=== PATIENT | female | born 1980 | race Caucasian/White ===

== ENCOUNTER 2019-04-11 11:46 | Emergency (ER) | payer OTHER ==
--- NOTE | 2019-04-11 12:40 | RAD ---
EXAM: 4 views of the left knee HISTORY: Knee pain after feeling something pop COMPARISON: None FINDINGS: No knee effusion is seen. There is no evidence of acute fracture or dislocation. No signifi cant degenerative changes are seen. No soft tissue swelling is present. IMPRESSION: No evidence of acute osseous abnormality.
[2019-04-11] MEDS ORDERED: Ketorolac Tromethamine 30 MG/ML VIAL ONE (12:41)
== END 2019-04-11 13:00 | disposition home or self-care (01) ==
LOC: SCSER 11:46
DX: S83.92XA Sprain of unspecified site of left knee, initial encounter (principal); K21.9 Gastro-esophageal reflux disease without esophagitis; F41.9 Anxiety disorder, unspecified; F32.9 Major depressive disorder, single episode, unspecified; F17.210 Nicotine dependence, cigarettes, uncomplicated; I10 Essential (primary) hypertension; Z79.899 Other long term (current) drug therapy; X50.1XXA Overexertion from prolonged static or awkward postures, initial encounter
CPT/HCPCS: 96372; J1885

== ENCOUNTER 2019-04-23 07:59 | Outpatient (CLI) | payer OTHER ==
--- NOTE | 2019-04-23 10:58 | MRI ---
LEFT KNEE MRI WITHOUT IV CONTRAST: Date: 04/23/19 HISTORY: Positive Chirag sign left knee. Injury left knee with pain. Meniscal tear left knee. Medial joint pa in tenderness. Left knee joint effusion. FINDINGS: Multiplanar, multisequence MRI examination of the left knee is performed. There is evidence for some joint effusion. There is some tricompartment cartilage loss, including the femoropatellar and medial compartments. There is an irregular posterior root tear of the medial meniscus. The lateral meniscus demonstrates some intrasubstance degenerative signal, but no evidence for an acute free edge tear. An terior and posterior cruciate ligaments, collateral ligament complexes, and quadriceps and patellar t endons and extensor mechanism are unremarkable. IMPRESSION: Irregular posterior root tear of the medial meniscus. Joint effusion. Cartilage loss including femoro patellar and medial compartments. No evidence for other significant acute internal derangement. POS: OFF
== END 2019-04-23 08:00 | disposition home or self-care (01) ==
LOC: MRI 07:59
PROVIDERS: ATTEND Pediatrics Sports Medicine
DX: S83.242A Other tear of medial meniscus, current injury, left knee, initial encounter (principal); M25.562 Pain in left knee; M25.462 Effusion, left knee; M94.8X6 Other specified disorders of cartilage, lower leg

== ENCOUNTER 2019-04-28 13:44 | Outpatient (CLI) | payer OTHER ==
[2019-04-28 14:42] LABS: #Basophils 0.1 thou/uL (0.0-0.2); #Eosinphils 0.4 thou/uL (0.0-0.7); #Lymphocytes 3.3 thou/uL (1.20-3.40); #Monocytes 0.7 thou/uL (0.11-0.59); #Neutrophils 6.7 thou/uL (1.40-6.50); %Basophils 0.7 % (0.0-1.0); %Eosinophils 3.4 % (0.0-10.0); %Lymphocytes 29.6 % (21.0-51.0); %Monocytes 5.9 % (0.0-10.0); %Neutrophils 60.4 % (42.0-75.0); Hemoglobin 13.4 g/dL (12.0-16.0); Mean Corpuscular HGB CONC 34.8 g/dL (32.0-36.0); Mean Corpuscular Hemoglobin 32.7 pg (27.0-31.0); Mean Corpuscular Volume 93.8 fL (78.0-98.0); Platelet Count 332 thou/uL (130-400); RBC Distribution Width 11.9 % (11.5-14.5); Red Blood Cell (RBC) Count 4.11 mill/uL (4.20-5.40); White Blood Cell (WBC) Count 11.1 thou/uL (4.8-10.8)
[2019-04-28 15:07] LABS: Anion Gap 14 mmol/L (10-20); BUN (Urea Nitrogen) 13 mg/dL (7.0-18.7); Calc. Creatinine Clearance 0 mL/min (70-130); Calcium 9.4 mg/dL (7.8-10.44); Carbon Dioxide 23 mmol/L (22-29); Chloride 102 mmol/L (98-107); Estimated GFR-MDRD 69; Glucose 102 mg/dL (70-105); Potassium 3.7 mmol/L (3.5-5.1); Sodium 135 mmol/L (136-145)
[2019-04-28 15:40] LABS: BHCG - Serum Negative (NEGATIVE); Pregs Control Background? CLEAR/WHITE (CLR/WHITE); Pregs Control Bar Appear? YES (CONTROL BAR)
== END 2019-04-28 13:45 | disposition home or self-care (01) ==
LOC: LABBT 13:44
PROVIDERS: ATTEND Orthopaedic Surgery
DX: Z01.818 Encounter for other preprocedural examination (principal); S83.242A Other tear of medial meniscus, current injury, left knee, initial encounter
CPT/HCPCS: 80048; 84703; 85025; 93005; 93010

== ENCOUNTER 2019-05-05 06:19 | Day surgery (SDC) | payer OTHER ==
[2019-04-28 14:23] VITALS: BMI 36.5
[2019-05-05] MEDS ORDERED: PROPOFOL 20 ML ONE (07:41)
[2019-05-05] MEDS ORDERED: Fentanyl 100 MCG/2 ML VIAL ONE (08:51)
[2019-05-05] MEDS ORDERED: HYDROcodone/Acetaminophen 5/325 mg Tablet ONE (10:28)
[2019-05-05] MEDS ORDERED: Morphine 2 MG/ML SYRINGE ONE ×2 (10:28→11:01)
[2019-05-05] MEDS ORDERED: Lidocaine 2% w/Epinephrine 1:200K 20 ML VIAL ONE (10:44)
[2019-05-05] MEDS ORDERED: Bupivacaine HCl 0.5%/Epinephrine 1:200,000/PF 30 ml Vial ONE (10:44)
--- NOTE | 2019-05-05 12:10 | OP ---
DATE OF PROCEDURE: 05/05/2019 PREOPERATIVE DIAGNOSES: Medial meniscus tear and arthritis of the left knee. POSTOPERATIVE DIAGNOSES: Medial meniscus tear and arthritis of the left knee. PROCEDURE PERFORMED: Arthroscopic partial medial meniscectomy, debridement of medial femoral condyle. ANESTHESIA: General. BLOOD LOSS: Minimal. SPECIMEN: None. COMPLICATIONS: None. TOURNIQUET: Not used. 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 Scope was placed in the lateral portal. Probe was placed in the medial portal. Findings were as stated above. I debrided the posterior horn of the meniscus using basket forceps and smoothed this confirming that the posterior horn was stable. The articular cartilage was probed. The entire crater was surrounded by unstable articular cartilage flap tears. I debrided these articular cartilage flap tears. Investigated the gutters for loose bodies. There were no loose bodies. No loose bodies in the suprapatellar pouch. The knee was drained and sterile dressings applied. Job ID: [id number]
[2019-05-05] MEDS ORDERED: Ketorolac Tromethamine 30 MG/ML VIAL ONE (14:31)
[2019-05-05] MEDS ORDERED: PROPOFOL 200 MG/20 ML VIAL ONE (14:31)
[2019-05-05] MEDS ORDERED: Lidocaine 1% PF 5 ML VIAL ONE (14:31)
[2019-05-05] MEDS ORDERED: Ondansetron PF 4 MG/2 ML Vial ONE (14:31)
== END 2019-05-05 11:35 | disposition home or self-care (01) ==
LOC: SDC 06:19
PROVIDERS: ATTEND Orthopaedic Surgery
PROC: 0SBD4ZZ Excision of Left Knee Joint, Percutaneous Endoscopic Approach (ICD-10-PCS; principal; 2019-05-05)
DX: S83.242A Other tear of medial meniscus, current injury, left knee, initial encounter (principal); M17.12 Unilateral primary osteoarthritis, left knee; I10 Essential (primary) hypertension; F41.9 Anxiety disorder, unspecified; F32.9 Major depressive disorder, single episode, unspecified; F17.210 Nicotine dependence, cigarettes, uncomplicated; Z79.899 Other long term (current) drug therapy; Z98.890 Other specified postprocedural states; X58.XXXA Exposure to other specified factors, initial encounter; Y92.838 Other recreation area as the place of occurrence of the external cause
CPT/HCPCS: J0670; J0690; J1885; J2001; J2270; J2405; J2704; J3010

== ENCOUNTER 2019-11-26 09:10 | Outpatient (CLI) | payer OTHER ==
--- NOTE | 2019-11-26 10:50 | MMO ---
Bilateral MAMMO Bilat Screen [facility]. CLINICAL HISTORY: Patient is 39 years old and is seen for screening. VIEWS: The views performed were: bilateral craniocaudal with tomosynthesis and bilateral mediolateral oblique with tomosynthesis. This study has been interpreted with the assistance of computer-aided detection. MAMMOGRAM FINDINGS: There are scattered fibroglandular densities. Finding 1: Normal implants are present. Finding 2: There is an intramammary lymph node seen in the right breast. There are no suspicious masses, suspicious calcifications, or new areas of architectural distortion. IMPRESSION: THERE IS NO MAMMOGRAPHIC EVIDENCE OF MALIGNANCY. A ROUTINE FOLLOW-UP MAMMOGRAM IN 1 YEAR IS RECOMMENDED. THE RESULTS OF THIS EXAM WERE SENT TO THE PATIENT. ACR BI-RADS Category 2 - Benign finding MAMMOGRAPHY NOTE: 1. A negative mammogram report should not delay a biopsy if a dominant of clinically suspicious mass is present. 2. Approximately 10% to 15% of breast cancers are not detected by mammography. 3. Adenosis and dense breasts may obscure an underlying neoplasm. Reported by: EUNICE MEDINA MD Electonically Signed: [id number]
== END 2019-11-26 09:11 | disposition home or self-care (01) ==
LOC: BICMAMMO 09:10
PROVIDERS: ATTEND Family Medicine
DX: Z12.31 Encounter for screening mammogram for malignant neoplasm of breast (principal)
CPT/HCPCS: 77063; 77067

== ENCOUNTER 2020-08-04 10:15 | Outpatient (CLI) | payer OTHER | END 2020-08-04 10:16 | disposition home or self-care (01) | LOC: DTY/OP 10:15 | PROVIDERS: ATTEND Surgery | DX: E66.01 Morbid (severe) obesity due to excess calories (principal) | CPT/HCPCS: 97802 ==

== ENCOUNTER 2020-10-21 07:21 | Outpatient (CLI) | payer OTHER ==
--- NOTE | 2020-10-21 17:04 | RAD ---
TWO VIEW CHEST: 10/21/20 INDICATIONS: Preop. COMPARISON: 06/14/20. Density in the medial right lung base is seen but is similar in appearance to 06/14/20. There is tenti ng of the diaphragm at this location as seen on the lateral view and this is a stable finding. There is a subtle density overlying the left lower lung which is slightly more prominent than the jo or exam. Lung nodule cannot be excluded. This should be followed up to assess stability. Lungs are otherwise clear. Heart and mediastinum unremarkable. Osseous structures unremarkable. IMPRESSION: 1. Question nodular density overlying the left lower lung. Follow-up recommended. 2. Opacity in the medial right lung base is similar to 06/14/20. Elective noncontrast chest CT may be of benefit to assess both of these densities. Code T POS: ALIA
[2020-10-21 17:28] LABS: #Basophils 0.1 10x3/uL (0.0-0.2); #Eosinphils 0.3 10x3/uL (0.0-0.5); #Neutrophils 7.6 10x3/uL (1.5-8.4); %Basophils 0.6 % (0.0-2.0); %Eosinophils 2.2 % (0.0-6.0); %Lymphocytes 29.7 % (18.0-47.0); %Monocytes 7.6 % (0.0-10.0); %Neutrophils 59.5 % (40.0-75.0); Hemoglobin 13.7 g/dL (12.0-16.0); Mean Corpuscular HGB CONC 33.6 G/DL (32.0-36.0); Mean Corpuscular Hemoglobin 31.3 PG (27.0-33.0); Mean Corpuscular Volume 93.2 fl (80.0-100.0); Mean Platelet Volume 10.2 fl (7.4-10.4); Platelet Count 398 10x3/uL (130-400); RBC Distribution Width 12.1 % (11.5-14.5); Red Blood Cell (RBC) Count 4.38 10x6/uL (3.90-5.20); White Blood Cell (WBC) Count 12.7 10x3/uL (4.5-11.0)
[2020-10-21 17:56] LABS: ALT (SGPT) 108 U/L (8-55); AST (SGOT) 79 U/L (5-34); Albumin 4.4 g/dL (3.5-5.0); Alkaline Phosphatase 92 U/L (40-110); Anion Gap 14 mmol/L (10-20); BUN (Urea Nitrogen) 18 mg/dL (7.0-18.7); Bilirubin, Total 0.3 mg/dL (0.2-1.2); Calc. Creatinine Clearance 0 mL/min (70-130); Calcium 9.5 mg/dL (7.8-10.44); Carbon Dioxide 23 mmol/L (22-29); Chloride 100 mmol/L (98-107); Globulin 2.8 g/dL (2.4-3.5); Glucose 116 mg/dL (70-105); Potassium 4.3 mmol/L (3.5-5.1); Protein, Total 7.2 g/dL (6.0-8.3); Sodium 133 mmol/L (136-145)
[2020-10-21 18:01] LABS: BHCG - Serum Negative (NEGATIVE); Pregs Control Background? CLEAR/WHITE (CLR/WHITE); Pregs Control Bar Appear? YES (CONTROL BAR)
[2020-10-21 20:41] LABS: Hemoglobin A1c 7.5 % (4.0-6.0)
[2020-10-22 03:28] LABS: SARS-CoV-2 MS2 Positive; SARS-CoV-2 N Gene Negative; SARS-CoV-2 S Gene Negative; SARS-CoV-2 by NAA Not Detected (NotDetected); SARS-CoV-2 orf1ab Negative
--- NOTE | 2020-10-24 16:20 | EKG ---
Test Reason : Blood Pressure : / mmHG Vent. Rate : 070 BPM Atrial Rate : 070 BPM P-R Int : 132 ms QRS Dur : 090 ms QT Int : 386 ms P-R-T Axes : 057 050 041 degrees QTc Int : 416 ms Normal sinus rhythm Normal ECG No previous ECGs available Confirmed by DR. Chad DRIVER ([id number]) on 10/24/2020 4:19:54 PM Referred By: MAIDNA Confirmed By:DR. Chad DRIVER
== END 2020-10-21 07:22 | disposition home or self-care (01) ==
LOC: LABBT 07:21
PROVIDERS: ATTEND Surgery
DX: Z01.818 Encounter for other preprocedural examination (principal); E66.01 Morbid (severe) obesity due to excess calories; R91.8 Other nonspecific abnormal finding of lung field; Z20.828 Contact with and (suspected) exposure to other viral communicable diseases
CPT/HCPCS: 71046; 80053; 83036; 84703; 85025; 87635; 93005; 93010; U0003

== ENCOUNTER 2020-10-21 16:00 | Inpatient (IN) | payer OTHER ==
[2020-10-25 15:02] VITALS: BMI 37.0
[2020-10-26] MEDS ORDERED: Glycopyrrolate 0.2 MG/ML 5 ML SYRINGE ONE (09:27)
[2020-10-26] MEDS ORDERED: Ketorolac Tromethamine 30 MG/ML VIAL ONE (09:27)
[2020-10-26] MEDS ORDERED: diphenhydrAMINE 50 MG/ML VIAL ONE (09:27)
[2020-10-26] MEDS ORDERED: PROPOFOL 200 MG/20 ML VIAL ONE (09:27)
[2020-10-26] MEDS ORDERED: Rocuronium Bromide 10 MG/ML (10ML VIAL) ONE (09:27)
[2020-10-26] MEDS ORDERED: Ondansetron PF 4 MG/2 ML Vial ONE (09:27)
[2020-10-26] MEDS ORDERED: Dexamethasone 20 MG/5 ML VIAL ONE (09:27)
[2020-10-26] MEDS ORDERED: Heparin 5,000 UNITS/ML VIAL ONE (12:54)
[2020-10-26] MEDS ORDERED: PACU-Morphine 4MG/ML VIAL SLOW IVP PRN (13:41)
[2020-10-26] MEDS ORDERED: Ondansetron HCl/PF 4 MG/2 ML Vial IVP PRN (13:41)
[2020-10-26] MEDS ORDERED: Meperidine HCl/PF 25 MG/ML VIAL SLOW IVP PRN (13:41)
[2020-10-26] MEDS ORDERED: Promethazine HCl 25 MG/ML VIAL SLOW IVP PRN (13:41)
[2020-10-26] MEDS ORDERED: Morphine Sulfate 2 MG/ML SYRINGE SLOW IVP PRN (13:41)
[2020-10-26] MEDS ORDERED: Promethazine HCl 25 MG/ML VIAL IM PRN ×3 (13:41→20:35)
[2020-10-26] MEDS ORDERED: HYDROmorphone 2 MG/ML VIAL SLOW IVP PRN (13:41)
[2020-10-26] MEDS ORDERED: Lidocaine 1% w/Epinephrine 1:100K 20 ML VIAL ONE (13:48)
[2020-10-26] MEDS ORDERED: Bupivacaine 0.25% HCL 30 ML VIAL ONE (13:48)
[2020-10-26] MEDS ORDERED: Fentanyl 250 MCG/5 ML VIAL ONE (13:50)
[2020-10-26] MEDS ORDERED: Midazolam HCl 2 mg/2 ml Vial ONE ×2 (14:18→14:19)
[2020-10-26] MEDS ORDERED: Fentanyl 100 MCG/2 ML VIAL ONE ×3 (14:19→16:53)
[2020-10-26] MEDS ORDERED: SUGAMMADEX SODIUM 200 MG/2 ML VIAL ONE (15:49)
[2020-10-26] MEDS ORDERED: Promethazine HCl 25 MG/ML VIAL ONE (16:12)
--- NOTE | 2020-10-26 18:54 | OP ---
DATE OF PROCEDURE: 10/26/2020 PREOPERATIVE DIAGNOSES: 1. Morbid obesity, body mass index of 38. 2. Diabetes mellitus, type 2. 3. Hypertension. POSTOPERATIVE DIAGNOSES: 1. Morbid obesity, body mass index of 38. 2. Diabetes mellitus, type 2. 3. Hypertension. 4. Paraesophageal hiatal hernia. PROCEDURES PERFORMED: 1. Laparoscopic sleeve gastrectomy with Ethicon staple line reinforcements and 38-Wolof bougie. 2. Laparoscopic paraesophageal hiatal hernia repair without fundoplication or mesh. 3. Esophagogastroduodenoscopy. ANESTHESIA: General. ESTIMATED BLOOD LOSS: Minimal. COMPLICATIONS: None. FINDINGS: Hiatal hernia. TECHNIQUE: The patient was taken to the operating room and laid supine on the operating room table. After general anesthetic was obtained, the arms and legs were double strapped to bariatric table. OG tube was used to decompress the stomach. The abdomen was prepped and draped in a sterile fashion. Left subcostal 5-mm Optiview trocar placed in usual fashion. High-flow pneumoperitoneum was obtained. Left and right abdominal 12 mm ports as well as a right subcostal 5-mm port were placed under direct visualization. A 5-mm port was placed at the xiphoid, and the liver retractor was used to raise the liver off the GE junction. Short gastrics were taken down midbody of stomach to left adeline of diaphragm using LigaSure taken down 6 cm proximal to the pylorus. The left adeline, angle of His, and fundus posteriorly were completely dissected, revealing a paraesophageal hiatal hernia. A circumferential dissection of the esophagus was then performed bringing the GE junction back into the abdominal cavity. OG tube was removed and a 38 bougie was brought in and its tip left in the antrum of the stomach. Multiple loads of [place] stapling device used to form the sleeve. The first was fired up at the distance of 6 cm proximal to the pylorus, angled up towards the incisura. Care was taken to avoid being too close incisura. Multiple loads then fired up along the bougie. Stomach was completely transected at the angle of His. The stomach was removed from the left abdominal incision. This fascial defect was closed using GraNee needle and Vicryl tie. The posterior crura were closed using an Ethibond suture and the Ti-KNOT system. This was done as not to be too tight. The bougie was removed, and an EGD scope was passed through the esophagus, stomach to the level of duodenum without obstruction. There was no air leakage on the staple line. There was no stricture at the incisura. There was no involvement of the GE junction with the staple line. The EGD scope was used to decompress the stomach, it was pulled and removed. All port sites were infiltrated using local anesthetic. All ports were removed under direct visualization without bleeding. Pneumoperitoneum was let down. Vicryl was used to close the fascial defect from the left abdominal incision. All incisions were irrigated and closed using 4-0 Monocryl and Dermabond. The patient was en route to Recovery in stable condition. All instrument counts, needle counts, and lap counts are correct. Job ID: [id number]
[2020-10-26] MEDS ORDERED: Naloxone HCl 0.4 mg/ml Vial IV PRN (19:15)
[2020-10-26] MEDS ORDERED: fentaNYL Citrate/PF 2,000 MCG in Sodium Chloride 0.9% 60 ML IV PRN (19:15)
[2020-10-26] MEDS ORDERED: diphenhydrAMINE 50 MG/ML VIAL IM/IV PRN (19:15)
[2020-10-26] MEDS ORDERED: Zolpidem Tartrate 5 MG TAB PO PRN (19:15)
[2020-10-26] MEDS ORDERED: diphenhydrAMINE 25 MG CAP PO PRN (19:15)
[2020-10-26] MEDS ORDERED: Ondansetron PF 4 MG/2 ML Vial IVP PRN ×2 (19:15→20:35)
[2020-10-26] MEDS: Acetaminophen 650 MG/20.3 ML UDCUP PO PRN (20:33)
[2020-10-26] MEDS ORDERED: Ondansetron ODT 4 MG TAB PO PRN (20:35)
[2020-10-26] MEDS ORDERED: Dextrose 5% in Water 1,000 ML IV PRN (20:45)
[2020-10-26] MEDS ORDERED: Dextrose 50% Abboject 50 ML SYRINGE IVP PRN (20:45)
[2020-10-26] MEDS ORDERED: HumaLOG 300 UNITS/3 ML VIAL SC PRN (20:45)
[2020-10-26] MEDS: Sodium Chloride 0.9% 1,000 ML IV SCH (20:59)
[2020-10-26] MEDS ORDERED: cloNIDine 0.2 MG TAB PO SCH (21:00)
[2020-10-26] MEDS ORDERED: Enoxaparin Sodium 40 MG/0.4 ML SYRINGE SC SCH (21:00)
[2020-10-26] MEDS: Ketorolac Tromethamine 30 MG/ML VIAL IVP PRN (22:55)
[2020-10-27] MEDS: Acetaminophen 650 MG/20.3 ML UDCUP PO PRN (03:08)
[2020-10-27] MEDS: Ketorolac Tromethamine 30 MG/ML VIAL IVP PRN (05:36)
[2020-10-27 06:20] LABS: Anion Gap 13 mmol/L (10-20); BUN (Urea Nitrogen) 9 mg/dL (7.0-18.7); Calc. Creatinine Clearance 187 mL/min (70-130); Calcium 8.9 mg/dL (7.8-10.44); Carbon Dioxide 24 mmol/L (22-29); Chloride 96 mmol/L (98-107); Glucose 133 mg/dL (70-105); Potassium 4.2 mmol/L (3.5-5.1); Sodium 129 mmol/L (136-145)
[2020-10-27 06:36] LABS: Band 10 % (5-11); Hemoglobin 13.4 g/dL (12.0-16.0); Lymphocytes 14 % (21-51); MDiff Complete? YES; Mean Corpuscular HGB CONC 34.1 g/dL (32.0-36.0); Mean Corpuscular Hemoglobin 32.4 pg (27.0-31.0); Mean Corpuscular Volume 95.1 fL (78.0-98.0); Mean Platelet Volume 7.7 fL (7.4-10.4); Monocytes 3 % (0-10); Neutrophil 73 % (42-75); Platelet Count 419 thou/uL (130-400); RBC Distribution Width 11.6 % (11.5-14.5); Red Blood Cell (RBC) Count 4.14 mill/uL (4.20-5.40); White Blood Cell (WBC) Count 21.3 thou/uL (4.8-10.8)
[2020-10-27 07:15] VITALS: BP 129/73; TEMP 98.8
[2020-10-27] MEDS ORDERED: Carvedilol 3.125 MG TAB PO SCH (09:00)
[2020-10-27] MEDS ORDERED: Amlodipine 10 MG TAB PO SCH (09:00)
[2020-10-27] MEDS ORDERED: Pantoprazole 40 MG VIAL IVP SCH (09:00)
[2020-10-27] MEDS ORDERED: Hydrocodone-Acetamin 15 ML UDCUP PO PRN (09:03)
[2020-10-27] MEDS: Sodium Chloride 0.9% 1,000 ML IV SCH (09:15)
--- NOTE | 2020-10-27 10:05 | DIS ---
DATE OF ADMISSION: 10/26/2020 DATE OF DISCHARGE: 10/27/2020 ADMIT DIAGNOSIS: Morbid obesity. DISCHARGE DIAGNOSIS: Morbid obesity. PROCEDURES PERFORMED: Laparoscopic sleeve gastrectomy and hiatal hernia repair by Dr. Paz without complication. CONDITION ON DISCHARGE: Improved. STAFF: Vernon Paz MD HOSPITAL COURSE: On postop day 1, the patient is doing well. She is to be discharged home. Prescriptions for Lortab Elixir, Zofran, and scopolamine had already been sent over to her Pharmacy. She will return to see me in the office in 2 weeks. She is tolerating her liquids. She is ambulatory. Her pain is controlled. Job ID: [id number]
--- NOTE | 2020-10-30 07:25 | PQF ---
CLINICAL DOCUMENTATION CLARIFICATION FORM: Dear : Vernon Paz Date / Time: 10/30/2020 Please exercise your independent, professional judgment in responding to the clarification form. Clinical indicators are provided on the bottom of this form for your review Please check appropriate box(es): [ ] Associated Diagnosis: Hyponatremia [ X] Insignificant lab value [ ] Other diagnosis [ ] Unable to determine In addition, please specify: Present on Admission (POA): [ ] Yes [ ] No [ ] Unable to determine To be completed by CDI/Coding staff for physician review: Present Clinical Indicators - Signs / Symptoms / Labs Results and Location in Medical Record [ x ] Sodium is 129 (L) Laboratory Present Risk Factors Results and Location in Medical Record [ x ] Sleeve gastrectomy with hernia repair procedure OP report 10/26 by Vernon Glez Present Treatments Results and Location in Medical Record [ x ] IV fluids 10/26-10/27 Medications CDS/[employer]er Signature: [id number] Phone #: Date/Time: 10/30/20 This is a permanent part of the Medical Record [facility]
== END 2020-10-27 10:45 | disposition home or self-care (01) | DRG 621 ==
LOC: SURG A 10-26 12:22
PROVIDERS: ADMIT Surgery; ATTEND Surgery
PROC: 0DB64Z3 Excision of Stomach, Percutaneous Endoscopic Approach, Vertical (ICD-10-PCS; principal; 2020-10-26)
PROC: 0BQT4ZZ Repair Diaphragm, Percutaneous Endoscopic Approach (ICD-10-PCS; 2020-10-26)
PROC: 0DJ08ZZ Inspection of Upper Intestinal Tract, Via Natural or Artificial Opening Endoscopic (ICD-10-PCS; 2020-10-26)
DX: E66.01 Morbid (severe) obesity due to excess calories (principal); E11.9 Type 2 diabetes mellitus without complications; I10 Essential (primary) hypertension; F41.9 Anxiety disorder, unspecified; K44.9 Diaphragmatic hernia without obstruction or gangrene; F32.9 Major depressive disorder, single episode, unspecified; Z68.37 Body mass index [BMI] 37.0-37.9, adult
CPT/HCPCS: 36415; 36416; 80048; 85025; 88307; 88312; C9113; J0690; J1100; J1200; J1644; J1650; J1885; J2250; J2405; J2550; J2704; J3010; Q0162; S0020